=== PATIENT | male | born 1945 | race Caucasian/White ===

== ENCOUNTER 2020-08-25 09:16 | Emergency (ER) | payer OTHER ==
[~2020-08-25] VITALS: Ht 167.6 cm; Wt 77.1 kg
[~2020-08-25 09:16] MED LIST: ALBU3IS INH; ALBU90OI INH; ALBUTEROL INH; AZIT500 PO; BUDE6HFA INH; DELTASONE20 MG PO; Flonase 0.05% N16 GM; IPRAOI INH; IPRATROPIUM INH; MIRT30 PO; MOME220I INH; PARO20 PO; PRED10 PO; VARE1 PO; Ventolin Soln3 ML INH
[2020-08-25 10:04] LABS: BASOPHILS ABSOLUTE AUTO 0.03 K/mm3 (0.00-0.23); BASOPHILS PERCENT AUTO 0 % (0-2); EOSINOPHILS ABSOLUTE AUTO 0.04 K/mm3 (0.00-0.68); EOSINOPHILS PERCENT AUTO 1 % (0-6); Hematocrit 42.2 % (37.0-53.0); Hemoglobin 13.4 g/dL (13.5-17.5); IMMATURE GRAN ABSOLUTE AUTO 0.03 K/mm3 (0.00-0.10); IMMATURE GRAN PERCENT AUTO 0 % (0-1); LYMPHOCYTES ABSOLUTE AUTO 0.57 K/mm3 (0.84-5.20); LYMPHOCYTES PERCENT AUTO 8 % (21-46); MONOCYTES ABSOLUTE AUTO 0.37 K/mm3 (0.16-1.47); MONOCYTES PERCENT AUTO 5 % (4-13); Mean Corpuscular HGB 29.9 pg (26.0-34.0); Mean Corpuscular HGB Conc 31.8 g/dL (31.5-36.5); Mean Corpuscular Volume 94 fL (80-100); Mean Platelet Volume 10.1 fL (9.1-12.4); NEUTROPHILS ABSOLUTE AUTO 5.85 K/mm3 (1.96-9.15); NEUTROPHILS PERCENT AUTO 85 % (41-73); Platelet Count 201 K/mm3 (150-400); RDW Coefficient Variation 12.5 % (11.7-14.2); RDW Standard Deviation 43.5 fL (35.1-46.3); Red Blood Cell Count 4.48 M/mm3 (4.30-5.90); White Blood Cell Count 6.89 K/mm3 (4.00-11.30)
[2020-08-25 10:26] LABS: Alanine Aminotransfer (ALT/SGP 24 U/L (12-78); Albumin, Blood 3.2 g/dL (3.4-5.0); Albumin/Globulin Ratio 1.1 (0.8-1.8); Alk Phos 43 U/L (50-136); Anion Gap 0 mmol/L (6-16); Aspartate Aminotrans (AST/SGOT 24 U/L (12-37); Bilirubin, Total 0.4 mg/dL (0.1-1.0); Blood Urea Nitrogen 32 mg/dL (8-24); Bun/Creatinine Ratio 39.9 (12.0-20.0); CO2, Blood 38 mmol/L (21-32); Chloride, Blood 105 mmol/L (98-108); Glomerular Filtration Rate >60 (60-); Glucose, Blood 106 mg/dL (70-99); Potassium, Blood 4.1 mmol/L (3.5-5.5); Sodium, Blood 143 mmol/L (136-145); Total Protein, Blood 6.2 g/dL (6.4-8.2)
[2020-08-25] MEDS ORDERED: AMLO5 PO (10:59)
[2020-08-25] MEDS ORDERED: BUDESONIDE-FO10.2 G2 INH (11:00)
[2020-08-25] MEDS ORDERED: Alomide10 ML BOTHEYES (11:01)
[2020-08-25] MEDS ORDERED: ARTIFICIAL TEA BOTHEYES (11:01)
[2020-08-25] MEDS ORDERED: MIRT30 PO (11:01)
[2020-08-25] MEDS ORDERED: PRED5 PO (11:02)
[2020-08-25] MEDS ORDERED: TIOT18 INH (11:02)
[2020-08-25] MEDS ORDERED: PRAZ1 PO (11:02)
[2020-08-25] MEDS ORDERED: PRED20 PO (12:19)
[2020-08-25] MEDS ORDERED: AZIT250 PO (12:19)
== END 2020-08-25 14:05 | disposition home or self-care (01) ==
LOC: ER 09:16
PROVIDERS: Emergency Medicine
DX: J44.1 Chronic obstructive pulmonary disease with (acute) exacerbation (principal); F17.200 Nicotine dependence, unspecified, uncomplicated; Z79.52 Long term (current) use of systemic steroids; Z79.899 Other long term (current) drug therapy
CPT/HCPCS: 71045; 80053; 85025; 93005; 93010; 94644; 96374; 99285-25; J2930

== ENCOUNTER 2023-06-03 06:09 | Day surgery (SDC) | payer OTHER ==
[~2023-06-03] VITALS: Ht 167.6 cm; Wt 67.5 kg
[~2023-06-03 06:09] MED LIST changes: +AMLO5 PO; +ARTIFICIAL TEA BOTHEYES; +AZIT250 PO; +Alomide10 ML BOTHEYES; +BUDESONIDE-FO10.2 G2 INH; +PRAZ1 PO; +PRED20 PO; +PRED5 PO; +TIOT18 INH
[2023-06-03] MEDS ORDERED: ASPI325 (06:31)
[2023-06-03] MEDS ORDERED: TAMS.4ER (06:32)
[2023-06-03] MEDS ORDERED: TIOT18 (06:32)
[2023-06-03] MEDS ORDERED: CALCIUM 1,0001 EAC1 (06:32)
[2023-06-03] MEDS ORDERED: WIXELA 100-501 EAC1 (06:32)
[2023-06-03] MEDS ORDERED: TRAZ50 (06:32)
[2023-06-03] MEDS ORDERED: Chantix1 MG (06:33)
[2023-06-03] MEDS ORDERED: RISP.25 (06:44)
[2023-06-03 08:13] VITALS: BP 108/79
== END 2023-06-03 08:01 | disposition home or self-care (01) ==
LOC: ORSCSDS 06:09 → ORD 07:30 → ORSCMMR 07:30 → ORSCSDS 08:01 → ORD 08:45
PROVIDERS: Surgery
PROC: 0DJ08ZZ Inspection of Upper Intestinal Tract, Via Natural or Artificial Opening Endoscopic (ICD-10-PCS; principal; 2023-06-03 07:30)
DX: R93.3 Abnormal findings on diagnostic imaging of other parts of digestive tract (principal); R13.10 Dysphagia, unspecified; I10 Essential (primary) hypertension; J44.9 Chronic obstructive pulmonary disease, unspecified; G47.33 Obstructive sleep apnea (adult) (pediatric); F32.A Depression, unspecified; F43.10 Post-traumatic stress disorder, unspecified; Z99.81 Dependence on supplemental oxygen; F17.210 Nicotine dependence, cigarettes, uncomplicated; Z79.899 Other long term (current) drug therapy
CPT/HCPCS: J2001; J2704; J7120

== ENCOUNTER 2024-05-10 10:33 | Day surgery (SDC) | payer OTHER ==
[~2024-05-10 10:33] MED LIST changes: +ALEN70 PO; +ASPI325; +CALCIUM 1,0001 EAC1; +Chantix1 MG; +DOCU100 PO; +DONEPEZIL HCL10 MG PO; +Doxycycline Mo100 M1 PO; +Lactated Ringer's 1,000 ML IV SCH; +MULVITA PO; +RISE35 PO; +RISP.25; +TAMS.4ER; +TIOT18; +TRAZ50; +WIXELA 100-501 EAC1
--- NOTE | 2024-05-10 11:07 | NUR ---
PATIENT DESCRIRBED LAST BM LIGHT BROWN AND UNABLE TO SEE THROUGH. DR CARTER NOTIFIED. DR CARTER WILL NOT DO PROCEDURE TODAY AND OFFERED PATIENT TO BE DONE TOMORROW AFTER DRINKING ADDITIONAL BOWEL PREP. PATIENT WAS NOT AGREEABLE TO THIS PLAN AND STATED A RIDE WAS NOT POSSIBLE TOMORROW. PATIENT AGREES TO FOLLOW-UP WITH DR CARTER'S OFFICE AND RE-SCHEDULE FOR A LATER DATE. DR CARTER'S OFFICE CALLED AND UPDATED WITH THIS IFORMATION.
== END 2024-05-10 11:07 | disposition home or self-care (01) ==
LOC: ORD 10:33 → ORSCMMR 10:33
DX: Z12.11 Encounter for screening for malignant neoplasm of colon (principal); Z53.9 Procedure and treatment not carried out, unspecified reason
CPT/HCPCS: J7120

== ENCOUNTER 2024-07-13 06:02 | Day surgery (SDC) | payer OTHER ==
[~2024-07-13] VITALS: Ht 165.1 cm; Wt 66.5 kg
[~2024-07-13 06:02] MED LIST changes: +FLUT1DIS5 INH; -Lactated Ringer's 1,000 ML IV SCH
[2024-07-13 06:45] VITALS: BP 122/84
[2024-07-13] MEDS ORDERED: Lactated Ringer's 1,000 ML IV SCH (06:55)
[2024-07-13] MEDS ORDERED: Ondansetron HCl 2 MG / ML 2ML Vial ONE (08:07)
[2024-07-13] MEDS ORDERED: propofoL 20 ML IV ONE (08:11)
[2024-07-13] MEDS ORDERED: Ipratropium/Albuterol SulF 2.5-0.5MG/3 ML Amp INH ONE ×2 (08:15→10:05)
[2024-07-13] MEDS ORDERED: propofoL 60 ML IV ONE (08:17)
--- NOTE | 2024-07-13 09:22 | NUR ---
07/13/24 0922 Richard Barrios ANESTHESIA PER DR. FOWLER
[2024-07-13] MEDS ORDERED: Ipratropium/Albuterol SulF 2.5-0.5MG/3 ML Amp ONE (10:09)
[2024-07-13 10:10] VITALS: BP 104/69
[2024-07-13 10:15] VITALS: BP 112/66
[2024-07-13 10:30] VITALS: BP 105/65
--- NOTE | 2024-07-13 10:43 | NUR ---
DISCHARGE NOTE PT A&OX4, BREATHING RA, NO COMPLAINTS, TOLERATING PO FLUIDS. DUONEB GIVEN PER MD ORDERS, PT REMAINS WHEEZY T/O C INTERMITTENT COUGHING WHICH PT STATES IS HIS BASELINE. PT DRESSED INDEPENDENTLY C GLASSES ON. Patient up to Ambulate independently. Gait steady. Discharge instructions reviewed with patient. Patient verbalizes understanding. Copy given to patient to take home.ABDOMEN SOFT AND NON TENDER. Discharged via wheelchair to private car for ride home.
[2024-07-13] MEDS ORDERED: Glycopyrrolate 0.2 MG/ML 5ML VIAL IV ONE (13:39)
== END 2024-07-13 11:07 | disposition home or self-care (01) ==
LOC: ORSCMMR 06:02 → ORD 07:30 → ORSCMMR 07:30
PROVIDERS: Surgery
PROC: 0DJD8ZZ Inspection of Lower Intestinal Tract, Via Natural or Artificial Opening Endoscopic (ICD-10-PCS; principal; 2024-07-13 08:15)
DX: Z12.11 Encounter for screening for malignant neoplasm of colon (principal); K59.09 Other constipation; I10 Essential (primary) hypertension; J44.9 Chronic obstructive pulmonary disease, unspecified; F32.A Depression, unspecified; G47.33 Obstructive sleep apnea (adult) (pediatric); Z86.73 Personal history of transient ischemic attack (TIA), and cerebral infarction without residual deficits; Z79.82 Long term (current) use of aspirin; Z79.899 Other long term (current) drug therapy
CPT/HCPCS: J2405; J2704; J7120